=== PATIENT | female | born 2000 | race Caucasian/White ===

== ENCOUNTER 2025-02-07 14:55 | Outpatient (CLI) | payer BC, SELFPAY ==
[2025-02-10 12:19] LABS: HPV Source Cervical; HPV, High Risk by TMA Not Detected
== END 2025-02-07 14:56 | disposition home or self-care (01) ==
PROVIDERS: Visit Provider Obstetrics & Gynecology
DX: N64.52 Nipple discharge (principal); Z12.4 Encounter for screening for malignant neoplasm of cervix; Z11.51 Encounter for screening for human papillomavirus (HPV)
CPT/HCPCS: 84146; 84443; 87624; 87625; 88141; 88142

== ENCOUNTER 2025-02-18 11:13 | Outpatient (CLI) | payer BC, SELFPAY ==
--- NOTE | 2025-02-18 11:15 | CRLHL7_ITS ---
For Patients: As a result of the Century Cures Act, medical imaging exams and procedure reports are released immediately into your electronic medical record. You may view this report before your referring provider. If you have questions, please contact your health care provider. CLINICAL HISTORY: : Left breast nipple discharge for one month. COMPARISON: None TECHNIQUE: Real-time ultrasound imaging of left breast with imaging documentation. FINDINGS: Targeted sonogram left breast retroareolar region performed. Mild multi duct ectasia noted. No intraductal nodule. Dense fibroglandular tissue present. No fibrocystic change or mass. IMPRESSION: No suspicious findings. RECOMMENDATIONS: Clinical follow-up. Results and recommendations were discussed with the patient at the time of the exam. A lay language report of this examination will be provided to the patient. BI-RADS Category 2. Benign. Dictated by Clyde Paiz MD @ 02/18/2025 12:24:13 PM (Electronically Signed)
== END 2025-02-18 11:14 | disposition home or self-care (01) ==
LOC: US 11:14
PROVIDERS: Visit Provider Obstetrics & Gynecology
DX: N64.52 Nipple discharge (principal)
CPT/HCPCS: 76642